=== PATIENT | female | born 1980 | race Caucasian/White ===

== ENCOUNTER 2020-12-12 09:00 | Emergency (ER) | payer BC ==
[2020-12-12] MEDS ORDERED: REMDESIVIR 200 MG in Sodium Chloride 0.9% 250 ML IV ONE (09:18)
[2020-12-12] MEDS ORDERED: Acetaminophen 500 MG Tab PO ONE (09:25)
[2020-12-12] MEDS ORDERED: Dexamethasone 4 MG/ML SDV IVPUSH SCH (09:30)
--- NOTE | 2020-12-12 09:43 | EDM.PDOC ---
ED HPI GENERAL MEDICAL PROBLEM - General Chief Complaint: General Stated Complaint: COVID POSITIVE Time Seen by Provider: 12/12/20 09:00 Source of Information: Reports: Patient History Limitations: Reports: No Limitations - History of Present Illness INITIAL COMMENTS - FREE TEXT/NARRATIVE: Pt. presents to ER with complaints of fatigue, [place], headache, congestion, and headache. Pt. was diagnosed with covid 19 on 12/09 at [facility]. She states that Doreen Galeana at [facility] is her PCP, however. Pt. states that her symptoms have gradually gotten worse over the weekend, and she called 911 today for transport to ER. Pt. states that she started feeling poorly last Sunday. She had a rapid covid 19 on 12/06 whiceh was negative. She had a virtual clinic visit on 12/07 and was diagnosed with bronchitis. She had a covid antigen test on the 09 of December which was positive. She was contacted by [facility] Dept. was positive results and was told to quarantine. On arrival to ER, pt. O2 sat was 82% on RA and RR was 44. Pt. complains of nausea, loss of smell, decreased appetite, nausea, has vomited once. Denies any diarrhea. Onset: Today Onset Date: 12/12/20 Location: Reports: Chest, Generalized Improves with: Reports: Rest Worsens with: Reports: Movement Headache Pain Score (Numeric/FACES): 8 - Related Data Allergies Allergy/AdvReac Type Severity Reaction Status Date / Time No Known Allergies Allergy Verified 12/12/20 09:16 Home Meds: Home Meds Sertraline [Zoloft] 50 mg PO DAILY 12/12/20 [History] norethindrone-e.estradioL-iron [Junel Fe 1.5 MG-30 MCG] 1 tab PO ASDIRECTED 12/12/20 [History] Past Medical History Psychiatric History: Reports: Anxiety, Depression Social & Family History - Tobacco Use Tobacco Use Status *Q: Never Tobacco User ED ROS GENERAL - Review of Systems Review Of Systems: See Below Constitutional: Reports: Fever, Chills, Malaise, Weakness, Fatigue, Decreased Appetite HEENT: Reports: Sinus Problem Respiratory: Reports: Shortness of Breath, Pleuritic Chest Pain, Cough Cardiovascular: Reports: Dyspnea on Exertion, Lightheadedness, PND. Denies: Chest Pain, Edema, Orthopnea, Palpitations, Syncope Endocrine: Reports: No Symptoms GI/Abdominal: Reports: Nausea, Vomiting. Denies: Abdominal Pain, Black Stool, Bloody Stool, Diarrhea, Difficulty Swallowing, Distension, Hematemesis, Hematochezia, Melena : Reports: No Symptoms Musculoskeletal: Reports: No Symptoms Skin: Reports: No Symptoms Neurological: Reports: No Symptoms Psychiatric: Reports: No Symptoms Hematologic/Lymphatic: Reports: No Symptoms Immunologic: Reports: No Symptoms ED EXAM, GENERAL - Physical Exam Exam: See Below Exam Limited By: No Limitations General Appearance: Alert, WD/WN, Mild Distress Eye Exam: Bilateral Eye: EOMI, Normal Fundi, PERRL Throat/Mouth: Normal Inspection, Normal Lips, Normal Teeth, Normal Oropharynx, Normal Voice, No Airway Compromise Head: Atraumatic, Normocephalic Neck: Normal Inspection, Supple, Non-Tender, Full Range of Motion Respiratory/Chest: Respiratory Distress (mild resp. distress), Decreased Breath Sounds, Crackles Cardiovascular: Normal Peripheral Pulses, Regular Rate, Rhythm, No Edema, No JVD Peripheral Pulses: 4+: Radial (L) GI/Abdominal: Soft, Non-Tender, No Organomegaly, No Distention, No Mass, Pelvis Stable (Female) Exam: Deferred Rectal (Female) Exam: Deferred Back Exam: Normal Inspection, Full Range of Motion Extremities: Normal Inspection, Normal Range of Motion, Non-Tender, No Pedal Edema, Normal Capillary Refill Neurological: Alert, Oriented, CN II-XII Intact, Normal Cognition, Normal Gait, Normal Reflexes, No Motor/Sensory Deficits Psychiatric: Normal Affect, Normal Mood Skin Exam: Warm, Dry, Intact, Normal Color #1 Interpretation Rhythm: NSR [place]: Normal P-Wave: Present QRS: Normal ST-T: Normal QT: Normal EKG Interpretation Comments: significant resp. waveform noted. No obvious ST or T wave abnormality. Course - Vital Signs Last Recorded V/S: Last Vital Signs Temp 38.5 C H 12/12/20 09:00 Pulse 90 12/12/20 10:13 Resp 34 H 12/12/20 10:13 BP 134/64 12/12/20 10:13 Pulse Ox 89 L 12/12/20 10:13 - Orders/Labs/Meds Orders: Active Orders 24 hr Category Date Time Status Cardiac Monitoring [RC] . DIRECTED Care 12/12/20 09:18 Active EKG Documentation Completion [RC] STAT Care 12/12/20 09:21 Active CULTURE BLOOD [BC] Stat Lab 12/12/20 10:00 Ordered CULTURE BLOOD [BC] Stat Lab 12/12/20 10:00 Ordered HEPATIC FUNCTION PANEL,HFP [CHEM] DAILY Lab 12/13/20 09:30 Ordered HEPATIC FUNCTION PANEL,HFP [CHEM] DAILY Lab 12/14/20 09:30 Ordered HEPATIC FUNCTION PANEL,HFP [CHEM] DAILY Lab 12/15/20 09:30 Ordered HEPATIC FUNCTION PANEL,HFP [CHEM] DAILY Lab 12/16/20 09:30 Ordered PROCALCITONIN [REF] Stat Lab 12/12/20 09:21 Ordered dexAMETHasone [Decadron] Med 12/12/20 09:30 Active 6 mg IVPUSH DAILY Blood Culture x2 Reflex Set [OM.PC] Stat Oth 12/12/20 10:00 Ordered Isolation [COMM] Stat Oth 12/12/20 09:18 Ordered Medication Orders Dexamethasone (Dexamethasone 4 Mg/Ml Sdv) 6 mg IVPUSH DAILY SHAHNAZ Stop: 12/21/20 08:01 Last Admin: 12/12/20 10:04 Dose: 6 mg Documented by: RANJANA Labs: Laboratory Tests 12/12/20 12/12/20 12/12/20 Range/Units 09:12 09:12 09:12 WBC 13.3 H (4.0-10.0) x10^3/uL RBC 5.33 (4.00-5.50) x10^6/uL Hgb 15.1 (12.0-16.0) g/dL Hct 44.7 (33.0-47.0) % MCV 83.9 (78.0-93.0) fL MCH 28.3 (26.0-32.0) pg MCHC 33.8 (32.0-36.0) g/dL RDW Coeff of Nga 13.7 (10.0-15.0) % Plt Count 303 (130-400) x10^3/uL Neut % (Auto) 81.2 H (50.0-80.0) % Lymph % (Auto) 12.8 L (25.0-50.0) % [place] % (Auto) 4.4 (2.0-11.0) % Eos % (Auto) 1.4 (0.0-4.0) % Baso % (Auto) 0.2 (0.2-1.2) % APTT 28.1 (25.6-32.8) SEC D-Dimer, Quantitative (<=0.58) mg/LFEU POC ABG pH (7.35-7.45) pH ABG pH POC ABG pCO2 (35-48) mmHg ABG pCO2 POC ABG pO2 (83-108) mmHg ABG pO2 POC ABG HCO3 (21-28) mmol/L ABG HCO3 POC ABG Total CO2 (22-29) mmol/L ABG Total CO2 POC ABG O2 Sat % ABG O2 Saturation ABG O2 Content POC ABG Base Excess (-2-3) mmol/L ABG Base Excess FiO2 POC FiO2 Blood Gas Comments Sodium 140 (136-145) mmol/L Potassium 3.6 (3.5-5.1) mmol/L Chloride 101 (98-107) mmol/L Carbon Dioxide 26 (21-32) mmol/L Anion Gap 16.6 H (5-15) mmol/L BUN 15 (7-18) mg/dL Creatinine 1.0 (0.55-1.02) mg/dL Est Cr Clr Drug Dosing 69.31 mL/min Estimated GFR (MDRD) > 60 Glucose 295 H (70-99) mg/dL Lactic Acid (0.4-2.0) mmol/L Calcium 8.5 (8.5-10.1) mg/dL Total Bilirubin 0.5 (0.2-1.0) mg/dL Direct Bilirubin 0.13 (0.00-0.20) mg/dL Indirect Bilirubin 0.37 AST 33 (15-37) U/L ALT 44 (14-59) U/L Alkaline Phosphatase 104 (46-116) U/L Lactate Dehydrogenase 223 (81-234) U/L Creatine Kinase 27 (26-192) U/L Troponin I High Sens < 4 (<=51) ng/L C-Reactive Protein 27.3 H (<=0.9) mg/dL Total Protein 8.0 (6.4-8.2) g/dL Albumin 2.8 L (3.4-5.0) g/dL Globulin 5.2 Albumin/Globulin Ratio 0.54 04/25/ 04/25/21 04/25/21 Range/Units 09:40 09:40 09:45 WBC (4.0-10.0) x10^3/uL RBC (4.00-5.50) x10^6/uL Hgb (12.0-16.0) g/dL Hct (33.0-47.0) % MCV (78.0-93.0) fL MCH (26.0-32.0) pg MCHC (32.0-36.0) g/dL RDW Coeff of Nga (10.0-15.0) % Plt Count (130-400) x10^3/uL Neut % (Auto) (50.0-80.0) % Lymph % (Auto) (25.0-50.0) % [place] % (Auto) (2.0-11.0) % Eos % (Auto) (0.0-4.0) % Baso % (Auto) (0.2-1.2) % APTT (25.6-32.8) SEC D-Dimer, Quantitative 0.78 H (<=0.58) mg/LFEU POC ABG pH (7.35-7.45) pH ABG pH Cancelled POC ABG pCO2 (35-48) mmHg ABG pCO2 Cancelled POC ABG pO2 (83-108) mmHg ABG pO2 Cancelled POC ABG HCO3 (21-28) mmol/L ABG HCO3 Cancelled POC ABG Total CO2 (22-29) mmol/L ABG Total CO2 Cancelled POC ABG O2 Sat % ABG O2 Saturation Cancelled ABG O2 Content Cancelled POC ABG Base Excess (-2-3) mmol/L ABG Base Excess Cancelled FiO2 Cancelled POC FiO2 Blood Gas Comments Cancelled Sodium (136-145) mmol/L Potassium (3.5-5.1) mmol/L Chloride (98-107) mmol/L Carbon Dioxide (21-32) mmol/L Anion Gap (5-15) mmol/L BUN (7-18) mg/dL Creatinine (0.55-1.02) mg/dL Est Cr Clr Drug Dosing mL/min Estimated GFR (MDRD) Glucose (70-99) mg/dL Lactic Acid 1.9 (0.4-2.0) mmol/L Calcium (8.5-10.1) mg/dL Total Bilirubin (0.2-1.0) mg/dL Direct Bilirubin (0.00-0.20) mg/dL Indirect Bilirubin AST (15-37) U/L ALT (14-59) U/L Alkaline Phosphatase (46-116) U/L Lactate Dehydrogenase (81-234) U/L Creatine Kinase (26-192) U/L Troponin I High Sens (<=51) ng/L C-Reactive Protein (<=0.9) mg/dL Total Protein (6.4-8.2) g/dL Albumin (3.4-5.0) g/dL Globulin Albumin/Globulin Ratio 12/12/ Range/Units 09:45 WBC (4.0-10.0) x10^3/uL RBC (4.00-5.50) x10^6/uL Hgb (12.0-16.0) g/dL Hct (33.0-47.0) % MCV (78.0-93.0) fL MCH (26.0-32.0) pg MCHC (32.0-36.0) g/dL RDW Coeff of Nga (10.0-15.0) % Plt Count (130-400) x10^3/uL Neut % (Auto) (50.0-80.0) % Lymph % (Auto) (25.0-50.0) % [place] % (Auto) (2.0-11.0) % Eos % (Auto) (0.0-4.0) % Baso % (Auto) (0.2-1.2) % APTT (25.6-32.8) SEC D-Dimer, Quantitative (<=0.58) mg/LFEU POC ABG pH 7.50 H (7.35-7.45) pH ABG pH POC ABG pCO2 32 L (35-48) mmHg ABG pCO2 POC ABG pO2 54 L* (83-108) mmHg ABG pO2 POC ABG HCO3 25.2 (21-28) mmol/L ABG HCO3 POC ABG Total CO2 24.9 (22-29) mmol/L ABG Total CO2 POC ABG O2 Sat 90.6 % ABG O2 Saturation ABG O2 Content POC ABG Base Excess 3 (-2-3) mmol/L ABG Base Excess FiO2 POC FiO2 0.36 Blood Gas Comments Sodium (136-145) mmol/L Potassium (3.5-5.1) mmol/L Chloride (98-107) mmol/L Carbon Dioxide (21-32) mmol/L Anion Gap (5-15) mmol/L BUN (7-18) mg/dL Creatinine (0.55-1.02) mg/dL Est Cr Clr Drug Dosing mL/min Estimated GFR (MDRD) Glucose (70-99) mg/dL Lactic Acid (0.4-2.0) mmol/L Calcium (8.5-10.1) mg/dL Total Bilirubin (0.2-1.0) mg/dL Direct Bilirubin (0.00-0.20) mg/dL Indirect Bilirubin AST (15-37) U/L ALT (14-59) U/L Alkaline Phosphatase (46-116) U/L Lactate Dehydrogenase (81-234) U/L Creatine Kinase (26-192) U/L Troponin I High Sens (<=51) ng/L C-Reactive Protein (<=0.9) mg/dL Total Protein (6.4-8.2) g/dL Albumin (3.4-5.0) g/dL Globulin Albumin/Globulin Ratio Meds: Medications Generic Name Dose Route Start Last Admin Trade Name Freq PRN Reason Stop Dose Admin Dexamethasone 6 mg 12/12/20 09:30 12/12/20 10:04 Dexamethasone 4 Mg/Ml Sdv IVPUSH 12/21/20 08:01 6 mg DAILY SHAHNAZ Administration Discontinued Medications Generic Name Dose Route Start Last Admin Trade Name Freq PRN Reason Stop Dose Admin Acetaminophen 1,000 mg 12/12/20 09:25 12/12/20 10:01 Acetaminophen 500 Mg Tab PO 12/12/20 09:26 1,000 mg ONETIME ONE Administration Remdesivir 200 mg/ Sodium 250 mls @ 250 mls/hr 12/12/20 09:18 12/12/20 10:04 Chloride IV 12/12/20 10:17 250 mls/hr ONETIME ONE Administration - Radiology Interpretation Free Text/Narrative:: Bilateral bibasilar and central infiltrates noted, consistent with covid pneumonia, edema, or ARDS. - Re-Assessments/Exams Free Text/Narrative Re-Assessment/Exam: Pt. was hypoxic with O2 sat approx. 80% on RA. Currently the patient in at 4L.min and satting 90-91%. Pt. is speaking in full sentences and talking on her phone. She was started on Remdesivir 200mg IV and dexamethasone 6mg IV, as well as acetaminophen 1000mg PO. Pt. reported feeling significantly better after her fever broke. Departure - Departure Time of Disposition: 10:54 Disposition: Home, Self-Care 01 Condition: Serious Clinical Impression: Pneumonia due to COVID-19 virus - Discharge Information Forms: ED Department Discharge Sepsis Event Note (ED) - Evaluation Sepsis Screening Result: Possible Sepsis Risk - Focused Exam Vital Signs: Vital Signs Temp Pulse Resp BP Pulse Ox 12/12/20 10:13 90 34 H 134/64 89 L 12/12/20 09:00 38.5 C H 102 H 37 H 148/78 H 80 L - My Orders Last 24 Hours: My Active Orders 12/12/20 09:18 Cardiac Monitoring [RC] . DIRECTED Isolation [COMM] Stat 12/12/20 09:21 EKG Documentation Completion [RC] STAT PROCALCITONIN [REF] Stat 12/12/20 09:30 dexAMETHasone [Decadron] 6 mg IVPUSH DAILY 12/12/20 10:00 CULTURE BLOOD [BC] Stat CULTURE BLOOD [BC] Stat Blood Culture x2 Reflex Set [OM.PC] Stat 12/13/20 09:30 HEPATIC FUNCTION PANEL,HFP [CHEM] DAILY 12/14/20 09:30 HEPATIC FUNCTION PANEL,HFP [CHEM] DAILY 12/15/20 09:30 HEPATIC FUNCTION PANEL,HFP [CHEM] DAILY 12/16/20 09:30 HEPATIC FUNCTION PANEL,HFP [CHEM] DAILY - Assessment/Plan Last 24 Hours: My Active Orders 12/12/20 09:18 Cardiac Monitoring [RC] . DIRECTED Isolation [COMM] Stat 12/12/20 09:21 EKG Documentation Completion [RC] STAT PROCALCITONIN [REF] Stat 12/12/20 09:30 dexAMETHasone [Decadron] 6 mg IVPUSH DAILY 12/12/20 10:00 CULTURE BLOOD [BC] Stat CULTURE BLOOD [BC] Stat Blood Culture x2 Reflex Set [OM.PC] Stat 12/13/20 09:30 HEPATIC FUNCTION PANEL,HFP [CHEM] DAILY 12/14/20 09:30 HEPATIC FUNCTION PANEL,HFP [CHEM] DAILY 12/15/20 09:30 HEPATIC FUNCTION PANEL,HFP [CHEM] DAILY 12/16/20 09:30 HEPATIC FUNCTION PANEL,HFP [CHEM] DAILY Plan: Pt. will be transported to [facility]. Dr. Christine accepts the patient in transfer. Pt. sister called the ER and was notified #[phone] (Zhane). Pt. states that she is feeling much better at time or transfer. Vitals as of 11:11 AM BP 142/88, HR 96, O2 sat 90% on O2 per NC at 4.5L/min. RR 30, speaking in full sentences on her phone to family. Pt. will be transferred via [facility] ground ambulance. Pt. indicates she is a code 1.
[2020-12-12 10:02] LABS: PCO2 ARTERIAL,POC 32 mmHg (35-48)
[2020-12-12 10:29] LABS: CHLORIDE,CL 101 mmol/L (98-107); SODIUM,NA 140 mmol/L (136-145)
[2020-12-12 10:30] LABS: ANION GAP 16.6 mmol/L (5-15)
--- NOTE | 2020-12-12 10:31 | CR ---
[id number] RAD/RAD Chest PA or AP 1V EXAM: FRONTAL CHEST INDICATION: RESPIRATORY FAILURE, + COVID. COMPARISON: None. DISCUSSION: There are extensive bilateral central and basilar infiltrates which could relate to COVID pneumonia, edema and/or ARDS. Borderline heart size. No effusions. IMPRESSION: 1. Extensive bilateral perihilar and basilar airspace opacities. Vishal Serra MD 12/12/20 [id number] Thank you for allowing us to participate in the care of your patient.
== END 2020-12-12 11:32 | disposition short-term general hospital (02) ==
LOC: VM.ED 09:00
DX: U07.1 COVID-19 (principal); J12.82 Pneumonia due to coronavirus disease 2019; Z79.899 Other long term (current) drug therapy
CPT/HCPCS: 36415; 36600; 71045; 80048; 80076; 82550; 82803; 83605; 83615; 84145; 84484; 85025; 85379; 85730; 86140; 87040; 93005; 93010; 96374; 99284; 99285-25; A9270-GY; J1100; J7050

== ENCOUNTER 2021-05-19 17:37 | Emergency (ER) | payer BC ==
[2021-05-19] MEDS ORDERED: hydrOXYzine HCl 50 MG/ML SDV IM ONE (17:43)
--- NOTE | 2021-05-19 17:49 | EDM.PDOC ---
ED HPI GENERAL MEDICAL PROBLEM - General Chief Complaint: Behavioral/Psych Stated Complaint: PANIC ATTACK Time Seen by Provider: 05/19/21 17:37 Source of Information: Reports: Patient History Limitations: Reports: No Limitations - History of Present Illness INITIAL COMMENTS - FREE TEXT/NARRATIVE: Patient comes in the emergency department with a panic attack. Patient states that the panic attack started 20 minutes prior to arrival. Patient states that she does have a longstanding history of anxiety and depression and she is on Zoloft daily. She states that in the course the last 24 hours she has had a significant increase of anxiety especially when she was unable to reach her mother. Her mother is of elderly age and has sustained injury in the past And when the patient was unable to reach her last evening it had increased her anxiety and she has not been able to slow her mind down. Patient states that her mind has been racing throughout the entire night. She has difficulty concentrating restless, irritable, on edge and excessive worry. Patient also states that she did not have a good night sleep related to the increased anxiety and unable to shut her mind down. Patient denies any suicidal thoughts ideations plans or intent. Patient also denies Any homicidal ideations. Onset: Sudden Duration: Other Location: Reports: Generalized Quality: Reports: Other Severity: Moderate Improves with: Reports: None Worsens with: Reports: None Associated Symptoms: Reports: No Other Symptoms - Related Data Allergies Allergy/AdvReac Type Severity Reaction Status Date / Time No Known Allergies Allergy Verified 12/12/20 09:16 Home Meds: Home Meds Sertraline [Zoloft] 50 mg PO DAILY 12/12/20 [History] norethindrone-e.estradioL-iron [Junel Fe 1.5 MG-30 MCG] 1 tab PO ASDIRECTED 12/12/20 [History] hydrOXYzine HCL [Hydroxyzine HCl] 25 mg PO TID PRN #10 tablet 05/19/21 [Rx] ED ROS GENERAL - Review of Systems Review Of Systems: Comprehensive ROS is negative, except as noted in HPI. Constitutional: Reports: No Symptoms HEENT: Reports: No Symptoms Respiratory: Reports: No Symptoms Cardiovascular: Reports: No Symptoms Endocrine: Reports: No Symptoms GI/Abdominal: Reports: No Symptoms : Reports: No Symptoms Musculoskeletal: Reports: No Symptoms Skin: Reports: No Symptoms Neurological: Reports: No Symptoms Psychiatric: Reports: Anxiety. Denies: Agitation, Confusion, Cravings, Depression, Hallucinations, Homicidal Ideation, Mood Lability, Suicidal Ideation Hematologic/Lymphatic: Reports: No Symptoms Immunologic: Reports: No Symptoms ED EXAM, GENERAL - Physical Exam Exam: See Below Exam Limited By: No Limitations General Appearance: Alert, WD/WN, No Apparent Distress Respiratory/Chest: No Respiratory Distress, Lungs Clear, Normal Breath Sounds, Chest Non-Tender Cardiovascular: Normal Peripheral Pulses, Regular Rate, Rhythm, No Edema, No JVD Back Exam: Normal Inspection, Full Range of Motion Extremities: Normal Inspection, Normal Range of Motion, Non-Tender, No Pedal Edema, Normal Capillary Refill Neurological: Alert, Oriented, Normal Gait Psychiatric: Anxious, Tearful, Other (breathing rapidly ) Skin Exam: Warm, Dry, Intact, Normal Color, No Rash Course - Orders/Labs/Meds Meds: Medications Discontinued Medications Generic Name Dose Route Start Last Admin Trade Name Freq PRN Reason Stop Dose Admin Hydroxyzine HCl 50 mg 05/19/21 17:43 Hydroxyzine Hcl 50 Mg/Ml Sdv IM 05/19/21 17:44 ONETIME ONE Departure - Departure Time of Disposition: 18:30 Disposition: Home, Self-Care 01 Condition: Good Clinical Impression: Anxiety, Panic attack - Discharge Information *PRESCRIPTION DRUG MONITORING PROGRAM REVIEWED*: Not Applicable *COPY OF PRESCRIPTION DRUG MONITORING REPORT IN PATIENT TOMASA: Not Applicable Prescriptions: hydrOXYzine HCL [Hydroxyzine HCl] 25 mg PO TID PRN #10 tablet PRN Reason: Anxiety Instructions: Panic Attack, [id number] Forms: ED Department Discharge Additional Instructions: 1. rest 2. increase your water intake 3. Continue all at home medications 4. Activity and diet as tolerated 5. Can take over the counter Tylenol for any pain or discomfort 6. Follow up with PCP if symptoms continue, return, or progress 7. Call with any questions or concerns 8. Can take a hydroxyzine PRN when feeling increase tension, racing thoughts, or excessive worrying - Assessment/Plan Assessment:: 1. anxiety/panic attack Plan: 1. Guide imagery preformed 2. Hydroxyzine IM given in the ER 3. Script sent home with the patient 4. Patient and nursing staff was updated regarding the plan of care 5. Education provided the patient regarding activity, diet, rest, [id number] medication modalities, and follow-up care was provided 6. Patient and family are agreeable to the above plan of care 7. All questions and concerns were addressed with the patient and family prior to discharge
== END 2021-05-19 18:20 | disposition home or self-care (01) ==
LOC: VM.ED 17:37
DX: F41.0 Panic disorder [episodic paroxysmal anxiety] (principal)
CPT/HCPCS: 96372; 99283; J3410

== ENCOUNTER 2024-03-24 04:24 | Emergency (ER) | payer BC, OTHER ==
[2024-03-24] MEDS: Orphenadrine 60 MG/2 ML Inj IM ONE (04:54)
[2024-03-24] MEDS: Ketorolac 30 MG/ML SDV IM ONE (04:55)
[2024-03-24] MEDS: Take Home: traMADol 50 MG, 4 Tab Pack PO ONE (04:56)
== END 2024-03-24 05:55 | disposition home or self-care (01) ==
LOC: VM.ED 04:24
DX: M54.42 Lumbago with sciatica, left side (principal); Z79.899 Other long term (current) drug therapy
CPT/HCPCS: 96372; 99283; A9270-GY; J1885; J2360